=== PATIENT | male | born 1985 | race Caucasian/White ===

== ENCOUNTER 2019-09-14 05:51 | Day surgery (SDC) | payer OTHER ==
[~2019-09-14] VITALS: Ht 180.3 cm; Wt 72.0 kg
[2019-09-14 06:29] VITALS: BP 131/78
[2019-09-14] MEDS ORDERED: LACTATED RINGERS 1,000 ML IV SCH (06:33)
[2019-09-14] MEDS ORDERED: MIDAZOLAM 1 MG/ML, 2ML ONE ×2 (06:42→07:25)
[2019-09-14] MEDS ORDERED: FENTANYL PF 250 MCG/5ML ONE (06:42)
[2019-09-14] MEDS ORDERED: ROCURONIUM 10MG/ML,5ML ONE (06:46)
[2019-09-14] MEDS ORDERED: CEFAZOLIN 1,000 MG ONE ×2 (06:46→07:25)
[2019-09-14] MEDS ORDERED: SUCCINYLCHOLINE 20 MG/ML, 10ML ONE (06:46)
[2019-09-14] MEDS ORDERED: GLYCOPYRROLATE 0.2MG/1ML, 5ML ONE ×2 (06:46→07:25)
[2019-09-14] MEDS ORDERED: PHENYLEPHRINE 10 MG/ML ONE (06:46)
[2019-09-14] MEDS ORDERED: PROPOFOL 10 MG/ML, 20ML ONE ×2 (06:46→07:25)
[2019-09-14] MEDS ORDERED: NEOSTIGMINE 1 MG/ML, 10ML ONE ×2 (06:46→07:25)
[2019-09-14] MEDS ORDERED: MUPIROCIN OINT 2%, 22GM ONE (06:56)
[2019-09-14] MEDS ORDERED: COCAINE TOPICAL SOLN 4%, 4ML ONE (06:56)
[2019-09-14] MEDS ORDERED: LIDOCAINE 1%-EPI 1:100K, 20ML ONE (06:56)
[2019-09-14] MEDS ORDERED: OXYMETAZOLINE NASAL SPRAY 0.05%, 15ML ONE (06:56)
[2019-09-14] MEDS ORDERED: MORPHINE SULFATE 4 MG/ML, 1ML IVPush PRN (07:00)
[2019-09-14] MEDS ORDERED: LABETALOL 5MG/ML, 20ML IV PRN (07:00)
[2019-09-14] MEDS ORDERED: GABAPENTIN 300 MG CAPSULE PO ONE (07:00)
[2019-09-14] MEDS ORDERED: HYDROmorphone 2 MG/ML, 1ML IVPush PRN (07:00)
[2019-09-14] MEDS ORDERED: MEPERIDINE/PF 25MG/ML,1ML IVPush PRN (07:00)
[2019-09-14] MEDS ORDERED: hydrALAzine 20 MG/ML, 1ML IV PRN (07:00)
[2019-09-14] MEDS ORDERED: ONDANSETRON 2MG/ML, 2ML IV PRN (07:00)
[2019-09-14] MEDS ORDERED: FENTANYL PF 100 MCG/2ML IV PRN (07:00)
[2019-09-14] MEDS ORDERED: OXYcodone 5 MG/5 ML ORAL.SOL UDC PO PRN (07:00)
[2019-09-14] MEDS ORDERED: ACETAMINOPHEN 500 MG TABLET PO ONE (07:00)
[2019-09-14] MEDS ORDERED: ALBUTEROL HFA (07:04)
[2019-09-14] MEDS ORDERED: ROCURONIUM 10 MG/ML,10ML ONE (07:25)
[2019-09-14] MEDS ORDERED: MEPERIDINE/PF 25MG/ML,1ML ONE (10:56)
[2019-09-14] MEDS ORDERED: OXYcodone 5 MG/5 ML ORAL.SOL UDC ONE (10:56)
== END 2019-09-14 12:40 | disposition home or self-care (01) ==
LOC: OUT 05:51
PROVIDERS: ATTEND Otolaryngology Facial Plastic Surgery
DX: S02.2XXA Fracture of nasal bones, initial encounter for closed fracture (principal); J34.2 Deviated nasal septum; M95.0 Acquired deformity of nose; X58.XXXA Exposure to other specified factors, initial encounter; Y93.89 Activity, other specified; Y92.89 Other specified places as the place of occurrence of the external cause; Y99.8 Other external cause status
CPT/HCPCS: 21335; J0690; J2175; J2250; J2370; J2405; J2704; J2710; J3010; J3490; J0330